=== PATIENT | female | born 1935 | race Caucasian/White ===

== ENCOUNTER 2019-06-09 08:08 | Emergency (ER) | payer OTHER, SELFPAY ==
--- NOTE | ~2019-06-09 | XR_ITS ---
EXAMINATION: XR tibia fibula LT 2V DATE: 06/09/2019 09:26 INDICATION: Left lower leg pain. Fall. TECHNIQUE: 2 views of left tibia and fibula were obtained. COMPARISON: Left tibia and fibula radiographs 01/23/2014 FINDINGS: Bone alignment is normal. No fracture. There is moderate tricompartmental osteoarthritis of the knee. There is a small knee joint effusion. IMPRESSION: 1. Moderate left knee osteoarthritis. 2. Small left knee joint effusion. Reviewed, dictated and finalized at location A. ER TRAPPER
--- NOTE | ~2019-06-09 | XR_ITS ---
EXAMINATION: XR shoulder RT min 2V EXAM DATE: 06/09/2019 09:26 INDICATION: Initial encounter following injury, with pain of the right shoulder. TECHNIQUE: The following right shoulder projections obtained: frontal projection with internal rotati on, frontal projection with external rotation, Grashey, and scapular Y view (4+ views). There is no prior study for comparison. FINDINGS: There is acute fracture through the distal aspect of the right clavicle near the acromiocla vicular joint, best seen on the Y projection. This appears to have displacement on the Y projection. The right humeral head, glenohumeral joints are unremarkable. IMPRESSION: Acute right clavicle fracture distally. Reviewed, dictated and finalized at location A. UTER SERVICE TECHNICIAN
--- NOTE | ~2019-06-09 | XR_ITS ---
EXAMINATION: XR hip RT min 3V w AP pelvis EXAM DATE: 06/09/2019 09:26 INDICATION: Initial encounter following injury, with pain of the right hip. TECHNIQUE: Right hip frontal, crosstable lateral and 'frog-leg' projections for interpretation. Front al projection pelvis. Comparison is made to prior examination from 08/15/2017. FINDINGS: There is total right hip arthroplasty, hardware in expected position. There is moderate lef t hip primary osteoarthritis. There are no acute fractures or dislocations identified. There is no s ubcutaneous gas. The soft tissue is unremarkable. IMPRESSION: Intact right hip arthroplasty. Reviewed, dictated and finalized at location A. FACTURING QUALITY MANAGER
--- NOTE | ~2019-06-09 | XR_ITS ---
EXAMINATION: XR tibia fibula RT 2V DATE: 06/09/2019 09:26 INDICATION: Right lower leg pain. TECHNIQUE: 2 views of right tibia and fibula on 3 radiographs were obtained. COMPARISON: Right tibia and fibula radiographs 08/28/2016 FINDINGS: Bone alignment is normal. No fracture. There is moderate osteoarthritis of medial and [place] lofemoral compartments and mild osteoarthritis of lateral compartment. There are enthesophytes at the posterior and plantar aspects of calcaneal tuberosity. No knee joint effusion. IMPRESSION: 1. Moderate right knee osteoarthritis. Reviewed, dictated and finalized at location A. DYNAMICS DEVELOPER
--- NOTE | ~2019-06-09 | CT_ITS ---
EXAMINATION: CT brain wo con, CT cervical spine wo con EXAM DATE: 06/09/2019 09:03 INDICATION: Fall, head injury. TECHNIQUE: Spiral CT of the head was performed without contrast. Axial, coronal and sagittal images were reviewed. Spiral CT of the cervical spine was performed without contrast. Axial images were rev iewed. Coronal and sagittal reformatted images were also reviewed. The dose-length product (DLP) fo r this examination was 908.00 (accession [id number]), 146.26 (accession [id number]) mGy-cm. The exposure was tailored according to patient size, and iterative reconstruction (ASIR) was used as additional dose reduction technique. There is no prior study for comparison. FINDINGS: HEAD CT: There is no acute intraparenchymal hemorrhage. No evidence of intraparenchymal brain mass l esion. No evidence of acute infarction. There is moderate periventricular and subcortical hypodensit y, nonspecific but probably related to small vessel ischemic disease. There is moderate prominence of the sulci and ventricles related to cerebral atrophy. There is intracranial carotid arterioscler osis. There is no mass effect or midline shift. There is no obstructive hydrocephalus suspected. T here are no extra-axial collections. There are no acute calvarial fractures. The orbits are unremar kable. Soft tissue is unremarkable. The visualized sinuses and mastoid air cells are well aerated. CERVICAL CT: There is right thyroid nodule measuring about 3 cm. There is no evidence of acute cervic al fracture. The odontoid process is intact. Pre-dens space is normal. Prevertebral soft tissue is normal. There are no soft tissue abnormalities identified. There is no disc space widening or trau matic vertebral body subluxation suspected. Overall moderate cervical spondylosis. A detailed level by level evaluation of spondylosis can be added as addendum if requested. IMPRESSION: 1. No acute intracranial or cervical findings. 2. Right thyroid nodule; consider follow-up ultrasound. 3. Age-related findings. Reviewed, dictated and finalized at location A. UT SORTER IMPRESSION: 1. No acute intracranial or cervical findings. 2. Right thyroid nodule; consider follow-up ultrasound. 3. Age-related findings.
[2019-06-09 08:07] VITALS: BP 132/61; PULSE 68; RESP 19; TEMP 37.1; O2SAT 99
--- NOTE | 2019-06-09 08:32 | ED.FALL ---
HPI - Fall General Chief Complaint: Fall Stated Complaint: FALL/ R SHOULDER PAIN Time Seen by Provider: 06/09/19 08:29 Source: patient and family (spouse) Mode of arrival: EMS Limitations: no limitations History of Present Illness HPI Narrative: Pt is an 83 y/o female who presents to the ED, via EMS, secondary to falling out of bed this morning. Per spouse, pt sat up in bed this morning at 0630 and she felt nauseas so he went to get her a bag. While he was going to the bathroom he heard a thump and she was on the floor. Per spouse, pt was not able to get up off the floor and he could not pick her up because she was complaining of rt shoulder pain every time he tried to pick her up. Spouse states that he laid cushions on the floor to make her comfortable and gave her Tylenol 500mg, her morning medications, an ice pack, and a heating pad. Pt stated that her pain was better but he could not get her up, so he called EMS. Pt reports BLE pain, but denies neck pain. complaint: fall Onset (ago): hour(s) (2) Fall from: out of bed Fall witnessed: yes, by family Place fall occurred: home Prolonged down time: hour(s) (2) Symptoms prior to fall: other (nausea) Location of injury - extremities: Right: shoulder Associated symptoms (after fall): denies Related Data Home Medications Medication Instructions Recorded Confirmed atorvastatin 20 mg tablet 20 mg PO DAILY 03/30/19 clopidogrel 75 mg tablet 75 mg PO DAILY 03/30/19 memantine 10 mg tablet 10 mg PO BID 03/30/19 Allergies Allergy/AdvReac Type Severity Reaction Status Date / Time Penicillins Allergy Unknown Unknown Verified 06/09/19 08:27 Review of Systems Review of Systems: All systems reviewed & are unremarkable except as noted in HPI and below Gastrointestinal: Gastrointestinal: Reports nausea Musculoskeletal: Musculoskeletal: Reports arthralgias (rt shoulder pain), Denies neck pain and Reports other (BLE pain) [facility] Past Medical History Medical History (Updated 06/09/19 @ 10:41 by Domitila Olivo MD) Anemia of chronic disease Dementia, unspecified, without behavioral disturbance HLD (hyperlipidemia) Surgical History Surgical History Status post breast lumpectomy Status post right hip replacement Social History Social History Smoking status: Never smoker Second hand tobacco smoke exposure: No Alcohol intake: never Substance use: never Substance use type: does not use Gender identity (if verbalized by the patient): Female Exam Const: General: cooperative, no acute distress and alert Nutritional Appearance: well nourished Orientation/consciousness: patient oriented x3 Limitations: no limitations HENMT: Mouth: Yes lip normal and Yes moist mucous membranes Neck: Neck: nontender Resp: Effort & Inspection: normal respiratory effort Auscultation: clear to auscultation bilaterally Cardio: Rate: regular rate Rhythm: regular rhythm GI: GI Palp: Yes Soft to palpation and No Tenderness to palpation present (GI) Auscultation: normal bowel sounds Back/Spine/Pelvis: Pelvis: Other pelvic findings ( rt proximal femur and hip tenderness) Skin: General skin exam: normal color Neuro: General: patient oriented x3 Cognition (Neuro): normal cognition Speech: normal speech Extrem: General: normal to inspection, full ROM and no clubbing, cyanosis or edema Right upper extremity: shoulder/upper arm tenderness of the A-C joint, of the proximal humerus and other (diffuse shoulder tenderness) Right lower extremity: lower leg Details: tenderness Location: of the midshaft tibia and of the midshaft fibula Left lower extremity: lower leg Details: tenderness Location: of the midshaft tibia and of the midshaft fibula Psych: Mental Status: mental status grossly normal Affect: normal affect Attitude: cooperative Course Course Emergency Course: Patient with fi
[2019-06-09 10:11] VITALS: BP 123/67; PULSE 72; RESP 14; O2SAT 100
[2019-06-09 12:00] VITALS: BP 114/64; PULSE 81; RESP 13; O2SAT 98
== END 2019-06-09 12:25 | disposition home or self-care (01) ==
PROVIDERS: Emergency Provider Emergency Medicine; PCP Family Medicine
DX: S42.031A Displaced fracture of lateral end of right clavicle, initial encounter for closed fracture (principal); M25.551 Pain in right hip; M79.605 Pain in left leg; M79.604 Pain in right leg; E78.5 Hyperlipidemia, unspecified; F03.90 Unspecified dementia, unspecified severity, without behavioral disturbance, psychotic disturbance, mood disturbance, and anxiety; Z96.641 Presence of right artificial hip joint; D63.8 Anemia in other chronic diseases classified elsewhere; E04.1 Nontoxic single thyroid nodule; M17.0 Bilateral primary osteoarthritis of knee; W06.XXXA Fall from bed, initial encounter
CPT/HCPCS: 70450; 72125; 73030; 73502; 73590; 99284

== ENCOUNTER 2019-07-08 09:49 | Outpatient (CLI) | payer OTHER, SELFPAY ==
--- NOTE | ~2019-07-08 | XR_ITS ---
EXAMINATION: XR foot LT min 3V EXAM DATE: 07/08/2019 10:07 INDICATION: No known recent injury provided at this time. Pain of the first, second metatarsal regio n. TECHNIQUE: Left foot dorsoplantar, lateral and oblique projections obtained and reviewed. There are n o prior studies for comparison. FINDINGS: Findings suspicious for juxta-articular erosion of the left first metatarsal head along its lateral aspect, best appreciated on the oblique projection, suspicious for gout. Please clinically c orrelate. There is bunion formation. There is mild to moderate Polyarticular primary osteoarthritis. IMPRESSION: 1. 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 2. Mild to moderate polyarticular left osteoarthritis. Reviewed, dictated and finalized at location A. LEDGE MANAGEMENT ADVISOR
== END 2019-07-08 09:50 | disposition home or self-care (01) ==
PROVIDERS: PCP Family Medicine; Visit Provider Physician Assistant
DX: M19.072 Primary osteoarthritis, left ankle and foot (principal)
CPT/HCPCS: 73630

== ENCOUNTER 2019-10-20 13:20 | Outpatient (CLI) | payer OTHER, SELFPAY ==
--- NOTE | ~2019-10-20 | DEXA_ITS ---
Bone Density Report Name: Elise Salmeron Age: 83 Sex: Female Ethnicity: White Date of : 1935 Indication: postmenopausal osteoporosis; height loss; prior fracture; Referring Provider: Carson Hernandez Study: Bone densitometry was performed. Exam Date: October 20, 2019 Accession number: [id number] Bone Density: Region BMD T-score Z-score Classification AP Spine (L2, L3) 0.699 -3.3 -0.4 Osteoporosis Femoral Neck (Left) 0.422 -3.8 -1.4 Osteoporosis Total Hip (Left) 0.516 -3.5 -1.2 Osteoporosis World Health Organization criteria for BMD impression classify patients as: Normal (T-score at or above -1.0), Osteopenia (T-score between -1.0 and -2.5), or Osteoporosis (T-score at or below -2.5). 10-year Fracture Risk: FRAX not reported because: Some T-score for Spine Total or Hip Total or Femoral Neck at or below -2.5 Prior hip or vertebral fracture Previous Exams: Region Exam Age BMD T-score BMD Change BMD Change Date g/cm2 vs Baseline vs Previous AP Spine(L2, L3) 10/20/2019 83 0.699 -3.3 0.030(4.4%)* 0.030(4.4%)* 02/06/2017 81 0.669 -3.5 Total Hip(Left) 10/20/2019 83 0.516 -3.5 -0.038(-6.9%)* -0.038(-6.9%)* 02/06/2017 81 0.554 -3.2 *Denotes significance at 95% confidence level, LSC for AP Spine = 0.022 g/cm2, LSC for Total Hip = 0.027 g/cm2 Clinical Information Provided by Patient: Have had a previous hip or vertebral fracture Has had a low trauma fracture Has used the following medications: Boniva (i.e. ibandronate), Calcium Patient maximum height was 66 Menopause Age: 50 No regular weight bearing exercise Does not regularly consume dairy products Onset of menses at age 14 Number of children 2 Impression: The patient has established osteoporosis, based on the Left Femoral Neck T-score and the existence of a prior fracture. The patient has risk factors, including: previous fracture. The BMD for the Total Hip(Left) decreased, changing by -6.9% since the last DXA exam. Discussion: HIGH RISK OF FRACTURE. BONE DENSITY IS UNDESIRABLY LOW AT ONE OR MORE SKELETAL SITES, CONSISTENT WITH POSTMENOPAUSAL OSTEOPOROSIS. This patient's lowest T-score, in a patient who has previously fractured, meets the World Health Organization's (WHO) criteria for severe osteoporosis. In untreated patients, the risk of osteoporotic fracture increases approximately two-fold for each 1.0 SD decrease in T-score. Low bone density is not the only risk factor for fracture; also consider factors such as patient's age, frailty or poor health, risk of fal
== END 2019-10-20 13:21 | disposition home or self-care (01) ==
PROVIDERS: PCP Family Medicine; Visit Provider Family Medicine
DX: Z78.0 Asymptomatic menopausal state (principal); M81.0 Age-related osteoporosis without current pathological fracture
CPT/HCPCS: 77080

== ENCOUNTER 2019-12-07 16:09 | Observation (INO) | payer OTHER, SELFPAY ==
[2019-12-07] VITALS (7 sets, daily range): BP systolic 126–149; BP diastolic 60–120; PULSE 71–81; RESP 15–20; TEMP 36.1–37.2; O2SAT 97–100; BMI 24.2; BMI 22.6
--- NOTE | ~2019-12-07 | XR_ITS ---
EXAMINATION: XR knee LT 2V DATE: 12/08/2019 10:36 INDICATION: Left knee pain post fall TECHNIQUE: Anteroposterior and crosstable lateral views of the left knee were obtained COMPARISON: None. FINDINGS: Alignment is normal. No fracture. Tricompartmental osteoarthritis at the left knee with moderate siz e marginal osteophytes in all 3 compartments. There is at least mild joint space narrowing the medial and patellofemoral compartment although severity of joint space narrowing can be underestimated on n onweightbearing imaging there appears be some remodeling of the medial femoral condyle and tibial allie teau suggesting an appreciated more severe joint space narrowing. Small left knee joint effusion with out layering lipohemarthrosis. Mild subcutaneous edema along the medial side of the knee. IMPRESSION: 1. Small left knee joint effusion without evident fracture or layering lipohemarthrosis. 2. Tricompartmental osteoarthritis at the left knee likely severe in the medial compartment however a ssessment is limited on nonweightbearing imaging. Reviewed, dictated and finalized at location A. IMPRESSION: 1. Small left knee joint effusion without evident fracture or layering lipohema rthrosis. 2. Tricompartmental osteoarthritis at the left knee likely severe in the medial compartment however assessment is limited on nonweightbearing imaging.
--- NOTE | ~2019-12-07 | CT_ITS ---
EXAMINATION: CT lumbar spine wo con EXAM DATE: 12/07/2019 17:46 INDICATION: Dementia. Fall. Back pain. TECHNIQUE: Spiral CT of the lumbar spine was performed without contrast. Axial, coronal and sagittal images were reviewed. The dose-length product (DLP) for this examination was 1050.38 mGy-cm. The exposure was tailored according to patient size (auto mA exposure control), and iterative reconstruct ion (ASIR) was used as additional dose reduction technique. Correlation is made to lumbar MR from 12/03. FINDINGS: There is acute mild compression fracture at the superior endplate of L2. There is moderate compression fracture at the superior endplate of L1, which appears chronic but with progression in lo ss of height compared to 2017. No unstable type fractures. There is moderate disc disease L4-5 and L5 -S1 with advanced facet arthropathy causing moderate to severe right neural foraminal stenosis and mo derate left neural foraminal stenosis at these 2 levels. The sacrum is intact. Small bone island in L 3. IMPRESSION: 1. L2 mild acute compression fracture. 2. L1 moderate chronic compression fracture. 3. Lower lumbar predominant spondylosis. Reviewed, dictated and finalized at location A.
--- NOTE | ~2019-12-07 | XR_ITS ---
EXAMINATION: XR chest 1V portable EXAM DATE: 12/07/2019 17:56 INDICATION: Fell today. TECHNIQUE: Portable AP frontal chest x-ray was obtained. Comparison is made to prior examination from 02/12/2019. FINDINGS: Distal right clavicular fracture which appears chronic. Bones are osteopenic. Please note that osteopenia limits sensitivity for detecting fractures by radiographs. No confluent consolidation , pneumothorax or pleural effusion suspected. Calcified mediastinal granulomas. The cardiomediastinal silhouette is prominent but magnified on this AP technique. IMPRESSION: 1. No acute cardiopulmonary findings. Reviewed, dictated and finalized at location A.
--- NOTE | ~2019-12-07 | CT_ITS ---
EXAMINATION: CT pelvis wo con EXAM DATE: 12/07/2019 17:46 INDICATION: Fall, pelvic, hip pain. Dementia. TECHNIQUE: Spiral CT pelvis wo con was performed without contrast. Axial, coronal and sagittal imag es were reviewed. The dose-length product (DLP) for this examination was 376.49 mGy-cm. The exposur e was tailored according to patient size (auto mA exposure control), and iterative reconstruction ( IR) was used as additional dose reduction technique. There is no prior study for comparison. FINDINGS: There is total right hip replacement. There are no acute fractures identified. Sacrum, sac roiliac joints, sacral arcuate lines are intact. Uterus is retroverted, bladder unremarkable. There i s mild sigmoid colonic diverticulosis. There is no adjacent inflammatory change to suggest diverticu litis. IMPRESSION: No acute pelvic findings. Reviewed, dictated and finalized at location A. IMPRESSION: No acute pelvic findings.
--- NOTE | ~2019-12-07 | XR_ITS ---
EXAMINATION: XR elbow LT min 3V EXAM DATE: 12/07/2019 17:56 INDICATION: Initial encounter following injury, with pain of the left elbow. TECHNIQUE: Left elbow frontal, lateral with flexion, and oblique projections obtained and reviewed. There is no prior study for comparison. FINDINGS: Left elbow anterior humeral line intact. There are no acute fractures or dislocations jennifer ntified. There is no subcutaneous gas. The soft tissue is unremarkable. There are no radiopaque f oreign bodies. . There is mild primary osteoarthritis. IMPRESSION: No acute osseous findings. Reviewed, dictated and finalized at location A. IMPRESSION: No acute osseous findings.
--- NOTE | ~2019-12-07 | CT_ITS ---
EXAMINATION: CT brain wo con EXAM DATE: 12/07/2019 17:45 INDICATION: Fell this morning, head injury. Dementia. TECHNIQUE: Spiral CT of the head was performed without contrast. Axial, coronal and sagittal images were reviewed. The dose-length product (DLP) for this examination was 605.33 mGy-cm. The exposure w as tailored according to patient size, and iterative reconstruction (ASIR) was used as additional dos e reduction technique. Comparison is made to prior examination from 06/09/2019. FINDINGS: There is no acute intraparenchymal hemorrhage. No evidence of intraparenchymal brain mass lesion. No evidence of acute infarction. Please note that initial head CT has limited sensitivity f or small or acute infarctions. 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 There is moderate periventric ular and subcortical hypodensity, nonspecific but probably related to small vessel ischemic disease. There is moderate prominence of the sulci and ventricles related to cerebral atrophy. There is in tracranial carotid arteriosclerosis. There are no extra-axial collections. There is no mass effect or midline shift. The orbits are unremarkable. Soft tissue is unremarkable. The visualized sinuses and mastoid air cells are well aerated. IMPRESSION: 1. No acute intracranial findings. 2. Chronic age related findings. 3. 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 Reviewed, dictated and finalized at location A.
--- NOTE | 2019-12-07 16:25 | ECG_ITS ---
Measurements Intervals [place] Rate: 75 P: 76 [place]: 220 QRS: 41 QRSD: 80 T: 28 QT: 400 QTc: 448 Interpretive Statements SINUS RHYTHM WITH FIRST DEGREE AV BLOCK BASELINE ARTIFACT- I, II, III, AVR, AVL, AVF, V1-V6 ABNORMAL ECG Electronically Signed On 12-07-2019 17:56:03 CDT by Tin Bruce D.O.
[2019-12-07] MEDS: SODIUM CHLORIDE 0.9% IV 500 ML 999 ML IV CONT (16:57)
[2019-12-07 17:08] LABS: Basophils Percent Auto 0.4 % (0.2-1.2); Eosinophils Percent Auto 0.4 % (0-4.4); Hematocrit 40.2 % (37.0-47.0); Hemoglobin 13.4 g/dL (12.0-15.0); Immature Granulocyte Absolute 0.04 K/mm3 (0.00-0.031); Immature Granulocyte Percent A 0.5 % (0-0.5); Lymphocytes Absolute Auto 0.86 K/mm3 (0.9-3.2); Lymphocytes Percent Auto 10.5 % (18.3-44.2); Mean Corpuscular HGB Conc 33.3 g/dl (32-36); Mean Corpuscular Hemoglobin 31.8 pg (26-34); Mean Corpuscular Volume 95.3 fl (80-100); Mean Platelet Volume 10.4 fl (7.4-10.4); Monocytes Absolute Auto 0.7 K/mm3 (0.1-0.6); Monocytes Percent Auto 7.9 % (2.6-8.5); Neutrophils Absolute Auto 6.6 K/mm3 (1.3-6.7); Neutrophils Percent Auto 80.3 % (45.5-73.1); Platelet Count Result 226 k/mm3 (150-375); Red Blood Count 4.22 M/mm3 (4.2-5.4); Red Cell Distribution Width 12.3 % (11.5-14.5); White Blood Count 8.2 K/mm3 (4.5-10.0)
[2019-12-07 17:14] LABS: Add Urine Microscopic? YES; Appearance Urine Clear (Clear); Bacteria Urine Trace /hpf; Bilirubin Urine Negative (Negative); Blood Urine 1+ (Negative); Color Urine Straw (Yellow); Glucose Urine UA Negative (Negative); Ketones Urine Negative (Negative); Leukocyte Esterase Ur Negative LEU/UL (Negative); Mucus Urine Rare /lpf; Nitrate Urine Negative (Negative); Protein Urine Negative (Negative); Specific Grav Ur 1.013 (1.001-1.035); Urobilinogen Urine Negative mg/dL (<2.0); WBC Urine 0-3 /hpf
[2019-12-07 17:18] LABS: INR 1.2; Prothrombin Time 14.4 Seconds (11.1-14.7)
[2019-12-07 17:19] LABS: Partial Thromboplastin Time 24.5 SECONDS (22.3-36.8)
--- NOTE | 2019-12-07 19:11 | PC.NURSE ---
PT REPORT GIIVEN BEDSIDE TO JOSIAS ROSADO WHO HAS ASSUMED PT CARE.
--- NOTE | 2019-12-07 19:15 | ED.GENADULT ---
HPI - General Adult General Chief complaint: Fall <HONG Krues Last Filed: 12/07/19 19:33> Stated complaint: BACK PAIN S/P FALL <HONG Kruse Last Filed: 12/07/19 19:33> Time Seen by Provider: 12/07/19 16:18 <HONG Kruse Last Filed: 12/07/19 19:33> Source: patient, family and EMS <HONG Kruse Last Filed: 12/07/19 19:33> Mode of arrival: EMS <HONG Kruse Last Filed: 12/07/19 19:33> Limitations: altered mental status and dementia <HONG Kruse Filed: 12/07/19 19:33> History of Present Illness HPI narrative: Patient is a 34-year-old female who presents to emergency department for evaluation of fall that occurred this morning patient had an unwitnessed fall fell backwards and has since been unable to ambulate EMS initially went out and did a lift assist however due to the patient's inability to ambulate had to return at which point she was brought into the emergency department patient on arrival is complaining of low back pain has not had anything for her symptoms has a history of frequent falls in the recent past secondary to unsteady gait patient lives at home with her elderly . denies any recent illness. Patient on arrival is a limited historian secondary to dementia. <HONG Kruse Last Filed: 12/07/19 19:33> Related Data Allergies/adverse reactions: Allergies Allergy/AdvReac Type Severity Reaction Status Date / Time Penicillins Allergy Unknown Unknown Verified 12/07/19 16:16 <HONG Kruse Last Filed: 12/07/19 19:33> Review of Systems Review of Systems: ROS unobtainable: Yes unobtainable due to mental status <HONG Kruse Last Filed: 12/07/19 19:33> [facility] Past Medical History Medical History: Medical History Anemia of chronic disease Dementia, unspecified, without behavioral disturbance HLD (hyperlipidemia) <HONG Kruse Last Filed: 12/07/19 19:33> Surgical History Surgical History: Surgical History Status post breast lumpectomy Status post right hip replacement <Miguel Perdue PA-C - Last Filed: 12/07/19 19:33> Family History Family History: Family History Mother Cerebrovascular accident Family history of diabetes mellitus in first degree relative Sibling Family history of diabetes mellitus in first degree relative <HONG Kruse Last Filed: 12/07/19 19:33> Social History Social History: Social History Smoking status: Never smoker Second hand tobacco smoke exposure: No Alcohol intake: never Substance use: never Substance use type: does not use Spiritual care concerns: No <HONG Kruse Last Filed: 12/07/19 19:33> Exam Narrative: Exam Narrative: GENERAL: Well-appearing, well-nourished, and in no acute distress. HEAD: Normocephalic, atraumatic. EYES: PERRLA and EOMI. ENT: Nares clear, no rhinorrhea or epistaxis. Mucous membranes moist. Oropharynx without tonsillar hypertrophy exudate or other lesions. NECK: Supple. No adenopathy or masses. CHEST: Clear to auscultation. No respiratory distress. No wheezes rales or rhonchi HEART: Regular rate and rhythm. No murmur heard. Normal peripheral pulses. ABDOMEN: Soft, nontender, nondistended EXTREMITIES: Normal range of motion. No edema. Extremities palpated nontender no midline cervical thoracic or lumbar tenderness. Pelvis palpated and stable hips nontender SKIN: Warm, dry, no rash. Small Skin tear to the left elbow NEURO: Normal speech. Alert and oriented to self. PSYCH: Normal mood and affect. <HONG Kruse Last Filed: 12/07/19 19:33> Course Course Emergency Cours
--- NOTE | 2019-12-07 21:40 | ADMGEN ---
This patient, Elise Salmeron, was admitted to Medical Room 341-01. Patient/family oriented to hospital policies and general routines including ID bracelet, bed and alarms, visiting hours, pain management, procedures, bathroom and other care routines, personal items, smoking policy, room service/diet, and visiting hours. Valuables list has been completed. Information on how to activate the Rapid Response Team has been discussed. Patient/Family are encouraged to report perceived risks to care and to ask questions if they do not understand what they are told or what they should do.
--- NOTE | 2019-12-07 22:27 | PC.NURSE ---
Patient has dementia and is only oriented to self. I attempted to ask her questions in regards to her medical history for the admission assessment. She was unable to answer and kept saying thank you Gonzalo I'm so glad you are here visiting me Your hair looks dixie like that Attempted to reach out to family but was unable to get an answer this late in the day. If I am able to speak with family and get more information I will update as soon as I know.
[2019-12-07] MEDS: FAMOTIDINE 20 MG/2 ML VIAL IV PUSH (22:49)
[2019-12-07] MEDS: LACTATED RINGERS 1,000 ML 75 ML IV CONT (22:50)
--- NOTE | 2019-12-08 02:31 | PM.IMHP ---
H&P: HPI History of Present Illness Date/Time: 12/08/19 02:31 Chief complaint: Frequent falls, gait instability, Narrative: This is a severely demented 84 year old female who presented to the hospital yesterday with a history of suffering an unwitnessed fall and afterwards experienced ambulatory dysfunction. The patient was complaining of lower back pain in the ER and has a history of frequent falls. She is known to live at home with her elderly . Lumbar CT demonstrated L1 and L2 compression fractures. CT brain was obtained and was unremarkable for acute intracranial processes. On my encounter with the patient she cannot remember any details of what happened to her and she is severely demented. She doesn't even realize she is in the hospital. She has no complaints at this time. Review of Systems Review of Systems: All systems reviewed & are unremarkable except as noted in HPI and below PMFSH Past Medical History Medical History Anemia of chronic disease Dementia, unspecified, without behavioral disturbance HLD (hyperlipidemia) Surgical History Surgical History Status post breast lumpectomy Status post right hip replacement Family History Family History Mother Cerebrovascular accident Family history of diabetes mellitus in first degree relative Sibling Family history of diabetes mellitus in first degree relative Social History Social History Smoking status: Never smoker Second hand tobacco smoke exposure: No Alcohol intake: never Substance use: never Substance use type: does not use Spiritual care concerns: No Meds Home Medications and Allergies Home Medications Medication Instructions Recorded Confirmed Type ibandronate 150 mg tablet 150 mg PO MONTHLY #3 tablet 05/26/19 12/07/19 Rx memantine 10 mg tablet 10 mg PO BID #180 tablet 07/01/19 12/07/19 Rx atorvastatin 20 mg tablet 20 mg PO DAILY #90 tablet 11/21/19 12/07/19 Rx clopidogrel 75 mg tablet 75 mg PO DAILY #90 tablet 11/21/19 12/07/19 Rx cephalexin 500 mg capsule 500 mg PO Q12H #60 cap 11/23/19 12/07/19 Rx Allergies Allergy/AdvReac Type Severity Reaction Status Date / Time Penicillins Allergy Unknown Unknown Verified 12/07/19 16:16 Vital Signs Vital Signs - 24 hr 12/07/19 16:09 12/07/19 16:57 12/07/19 18:25 Temperature 36.2 C L Pulse Rate 75 78 78 Respiratory Rate 20 16 Blood Pressure 140/88 129/81 142/96 H Pulse Oximetry 97 100 12/07/19 18:26 12/07/19 19:00 12/07/19 19:45 Temperature 37.2 C Pulse Rate 73 74 81 Respiratory Rate 16 16 Blood Pressure 132/120 H 126/60 149/103 H Pulse Oximetry 98 12/07/19 21:48 Temperature 36.1 C L Pulse Rate 71 Respiratory Rate 15 Blood Pressure 146/96 H Pulse Oximetry 98 Exam Const: General: cooperative, alert, awake and confusion Nutritional Appearance: well nourished and other (demented+++ ) Orientation/consciousness: oriented to person HENMT: Head: normal to inspection General nose exam: Normal external nose present Face and sinus: normal facial exam Mouth: Yes Normal oral and palatal mucosa present and Yes oropharynx normal Eyes: Pupils: Equal, round and reactive pupils present EOM: EOMs intact bilaterally Neck: Neck: supple and no JVD Thyroid: thyroid normal Lymphatic: lymphadenopathy not noted Resp: Effort & Inspection: normal respiratory effort Auscultation: clear to auscultation bilaterally Cardio: Rate: regular rate Rhythm: regular rhythm Heart sounds: no murmurs GI: Inspection: normal to inspection Auscultation: normal bowel sounds Skin: General skin exam: ecchymosis (brusing on upper extremities++ ) Neuro: General: oriented to person and other (demented+++ ) Cranial nerves: Yes CN's II-XII intact bilaterally a
[2019-12-08 05:46] LABS: Basophils Percent Auto 0.8 % (0.2-1.2); Eosinophils Absolute Auto 0.1 K/mm3 (0-0.3); Eosinophils Percent Auto 1.9 % (0-4.4); Hematocrit 38.4 % (37.0-47.0); Hemoglobin 12.5 g/dL (12.0-15.0); Immature Granulocyte Absolute 0.03 K/mm3 (0.00-0.031); Immature Granulocyte Percent A 0.6 % (0-0.5); Lymphocytes Absolute Auto 0.64 K/mm3 (0.9-3.2); Lymphocytes Percent Auto 12.3 % (18.3-44.2); Mean Corpuscular HGB Conc 32.6 g/dl (32-36); Mean Corpuscular Hemoglobin 31.3 pg (26-34); Mean Corpuscular Volume 96.2 fl (80-100); Mean Platelet Volume 10.2 fl (7.4-10.4); Monocytes Absolute Auto 0.5 K/mm3 (0.1-0.6); Neutrophils Absolute Auto 3.9 K/mm3 (1.3-6.7); Neutrophils Percent Auto 75.4 % (45.5-73.1); Platelet Count Result 185 k/mm3 (150-375); Red Blood Count 3.99 M/mm3 (4.2-5.4); Red Cell Distribution Width 12.3 % (11.5-14.5); White Blood Count 5.2 K/mm3 (4.5-10.0)
[2019-12-08 05:59] LABS: Anion Gap 7.5 mmol/L (7-16); Blood Urea Nitrogen 12 mg/dL (7-17); Calcium 7.9 mg/dL (8.4-10.2); Carbon Dioxide 26 mmol/L (22-30); Chloride 105 mmol/L (98-107); Estimated CRCL calculation 58 ml/min; Estimated Glomerular Filt Rate > 60; Glucose 90 mg/dL (65-105); Potassium 3.5 mmol/L (3.4-5.0); Sodium 135 mmol/L (137-145)
[2019-12-08 06:00] VITALS: BP 111/59; PULSE 73; RESP 16; TEMP 36.6; O2SAT 96
[2019-12-08] MEDS: ATORVASTATIN 20 MG TABLET PO (08:59)
[2019-12-08] MEDS: CLOPIDOGREL BISULFATE 75 MG TABLET PO (08:59)
[2019-12-08] MEDS: FAMOTIDINE 20 MG/2 ML VIAL IV PUSH ×2 (08:59→20:26)
[2019-12-08] MEDS: MEMANTINE 10 MG TABLET PO ×2 (08:59→17:02)
--- NOTE | 2019-12-08 09:26 | PCOTNOTE ---
OT evaluation attempted. Awaiting orthopedic consult due to L1-L2 compression fractures. Will attempt OT evaluation when medically appropriate.
--- NOTE | 2019-12-08 09:29 | PCPTNOTE ---
Attempted to see pt for PT evaluation. Pt has compression fractures at L1 and L2. Will attempt again after ortho consult.
[2019-12-08] MEDS: LACTATED RINGERS 1,000 ML 75 ML IV CONT (13:03)
[2019-12-08 14:00] VITALS: BP 122/66; PULSE 72; RESP 14; TEMP 36.8; O2SAT 96
--- NOTE | 2019-12-08 14:52 | PM.IMPN ---
Progress Note: A&P Assessment and Plan (1) Lumbar compression fracture: Qualifiers: Encounter type: initial encounter Lumbar vertebra fracture level: unspecified lumbar vertebra Qualified Code(s): S32.000A - Wedge compression fracture of unspecified lumbar vertebra, initial encounter for closed fracture Code(s): S32.000A - Wedge compression fracture of unspecified lumbar vertebra, initial encounter for closed fracture Status: Acute Assessment and Plan: Admit to med-surg for observation, pain control overnight. Oakley catheter. 12/08/19 14:52Patient is 84 year female with history of severe dementia bleed with her patient had unwitnessed fall at home unfortunately patient is unable to provide any review of symptoms or history, patient had been complain of low back pain upon arrival to emergency lumbar spine showed L1 and L2 compression fracture, CT scan of the head not show any acute injury today patient still is in pain and unable to provide any review of symptoms will have PT OT evaluate the patient and further recommendation to follow, patient will need placement as her elderly would not be able to take care of her. (2) Ambulatory dysfunction: Code(s): R26.2 - Difficulty in walking, not elsewhere classified Status: Acute Assessment and Plan: PT/OT evaluation when appropriate. The patient will likely need placement. (3) Dementia, unspecified, without behavioral disturbance: Qualifiers: Dementia type: unspecified type Qualified Code(s): F03.90 - Unspecified dementia without behavioral disturbance Code(s): F03.90 - Unspecified dementia without behavioral disturbance Status: Chronic Assessment and Plan: Continue Memantine PO. (4) HLD (hyperlipidemia): Qualifiers: Hyperlipidemia type: unspecified Qualified Code(s): E78.5 - Hyperlipidemia, unspecified Code(s): E78.5 - Hyperlipidemia, unspecified Status: Acute Assessment and Plan: Continue Lipitor PO. Subjective Date/time seen: 12/08/19 14:52Patient is 84 year female with history of severe dementia bleed with her patient had unwitnessed fall at home unfortunately patient is unable to provide any review of symptoms or history, patient had been complain of low back pain upon arrival to emergency lumbar spine showed L1 and L2 compression fracture, CT scan of the head not show any acute injury today patient still is in pain and unable to provide any review of symptoms will have PT OT evaluate the patient and further recommendation to follow, patient will need placement as her elderly would not be able to take care of her. Review of Systems Review of Systems: ROS unobtainable: Yes unobtainable due to medical condition Exam Const: General: no acute distress and uncomfortable HENMT: General nose exam: Normal nares present Mouth: Yes moist mucous membranes Eyes: Sclera: sclerae normal Neck: Neck: supple Resp: Effort & Inspection: normal respiratory effort Auscultation: clear to auscultation bilaterally Cardio: Rate: regular rate Rhythm: regular rhythm GI: Auscultation: normal bowel sounds Skin: General skin exam: normal color Neuro: Other: patient with severe dementia Extrem: Other: bilateral lower extremity symmetrical there is no internal external rotation Psych: Other: patient with severe dementia Objective Data Vital Signs Vital Signs: Vital Signs - 24 hr 12/07/19 16:09 12/07/19 16:57 12/07/19 18:25 Temperature 97.1 F L Pulse Rate 75 78 78 Respiratory Rate 20 16 Blood Pressure 140/88 129/81 142/96 H Pulse Oximetry 97 100 12/07/19 18:26 12/07/19 19:00 12/07/19 19:45 Temperature 99.0 F Pulse Rate 73 74 81 Respiratory Rate 16 16 Blood Pressure 132/120 H 126/60 149/103 H Pulse Oximetry 98 12/07/19 21:48 12/08/19 06:00 Temperature 97 F L 97.9 F Pulse Rate 71 73 Respiratory Rate 15
--- NOTE | 2019-12-08 15:25 | PM.CNOR ---
Assessment and Plan Assessment and plan (1) Lumbar compression fracture: Qualifiers: Encounter type: initial encounter Lumbar vertebra fracture level: unspecified lumbar vertebra Qualified Code(s): S32.000A - Wedge compression fracture of unspecified lumbar vertebra, initial encounter for closed fracture Code(s): S32.000A - Wedge compression fracture of unspecified lumbar vertebra, initial encounter for closed fracture Status: Acute (2) Age-related osteoporosis with current pathological fracture, unspecified ankle and foot, initial encounter for fracture: Code(s): M80.079A - Age-related osteoporosis with current pathological fracture, unspecified ankle and foot, initial encounter for fracture Status: Acute (3) Dementia, unspecified, without behavioral disturbance: Qualifiers: Dementia type: unspecified type Qualified Code(s): F03.90 - Unspecified dementia without behavioral disturbance Code(s): F03.90 - Unspecified dementia without behavioral disturbance Status: Chronic Assessment and Plan: Acute, minimally displaced L2 compression fracture. I reviewed the CT scan and agree with the radiologist interpretation. Also, a chronic L1 compression fracture with moderate deformity. We will treat this conservatively. She did not tolerate bracing for her previous fracture and I bracing is not required here. She should avoid thoracic and lumbar flexion. She may bear weight with a walker. Mobilize as able. Pain should improve gradually over the next days and weeks. She will likely need [facility] depending on how she does. Her is quite helpful and attentive. Her osteoporosis is treated. Dementia is stable. She may follow up in 1 month for x-rays. History of Present Illness HPI Consult date: 12/08/19 Chief complaint: Frequent falls, gait instability, Narrative: Pleasantly demented 84-year-old female complains of lumbar back pain. Occurred after a fall at home. Witnessed by her . Initially she was able to walk after assistance getting up from emergency medical personnel. However later she began having severe low back pain that evening. History of L1 compression fracture treated conservatively. She did not tolerate brace wear at that time. Denies radiating pain. No numbness or tingling. No bowel or bladder complaints. Complains of chronic left knee pain and swelling with known deformity. History of injections for arthritis. No upper extremity complaints. She no previous pain prodrome. Review of Systems Review of Systems: All systems reviewed & are unremarkable except as noted in HPI and below ROS unobtainable: Yes unobtainable due to mental status PMFSH Past Medical History Medical History Anemia of chronic disease Dementia, unspecified, without behavioral disturbance HLD (hyperlipidemia) Surgical History Surgical History Status post breast lumpectomy Status post right hip replacement Family History Family History Mother Cerebrovascular accident Family history of diabetes mellitus in first degree relative Sibling Family history of diabetes mellitus in first degree relative Social History Social History Smoking status: Never smoker Second hand tobacco smoke exposure: No Alcohol intake: never Substance use: never Substance use type: does not use Spiritual care concerns: No Meds Home Medications and Allergies Home Medications Medication Instructions Recorded Confirmed Type ibandronate 150 mg tablet 150 mg PO MONTHLY #3 tablet 05/26/19 12/07/19 Rx memantine 10 mg tablet 10 mg PO BID #180 tablet 07/01/19 12/07/19 Rx atorvastatin 20 mg tablet 20 mg PO DAILY #90 tablet 11/21/19 12/07/19 Rx clopi
[2019-12-08 22:00] VITALS: BP 134/76; PULSE 68; RESP 18; TEMP 36.9; O2SAT 96
[2019-12-09 05:09] VITALS: BP 137/80; PULSE 74; RESP 18; TEMP 37.1; O2SAT 99
[2019-12-09 06:15] LABS: Hematocrit 41.8 % (37.0-47.0); Hemoglobin 13.5 g/dL (12.0-15.0); Mean Corpuscular HGB Conc 32.3 g/dl (32-36); Mean Corpuscular Volume 96.1 fl (80-100); Mean Platelet Volume 10.3 fl (7.4-10.4); Platelet Count Result 219 k/mm3 (150-375); Red Blood Count 4.35 M/mm3 (4.2-5.4); Red Cell Distribution Width 12.4 % (11.5-14.5); White Blood Count 6.2 K/mm3 (4.5-10.0)
[2019-12-09 06:52] LABS: Blood Urea Nitrogen 13 mg/dL (7-17); Calcium 8.3 mg/dL (8.4-10.2); Carbon Dioxide 28 mmol/L (22-30); Chloride 106 mmol/L (98-107); Estimated CRCL calculation 49 ml/min; Estimated Glomerular Filt Rate > 60; Glucose 107 mg/dL (65-105); Sodium 138 mmol/L (137-145)
--- NOTE | 2019-12-09 07:52 | PCPTNOTE ---
RN, Domitila, notified the manager lsw that this patient was consulted by Dr. Oliveros this morning and he has recommended that the patient does not need a TLSO. Dr. Oliveros reported that therapy is able to evaluate the patient today. The manager lsw notified acute therapy staff and the patient will be seen for an initial OT and PT evaluation today, as deemed appropriate. Eryn Martínez, PT, DPT
[2019-12-09] MEDS: CLOPIDOGREL BISULFATE 75 MG TABLET PO (09:19)
[2019-12-09] MEDS: FAMOTIDINE 20 MG/2 ML VIAL IV PUSH ×2 (09:19→20:35)
[2019-12-09] MEDS: MEMANTINE 10 MG TABLET PO ×2 (09:19→17:34)
[2019-12-09] MEDS: ATORVASTATIN 20 MG TABLET PO (09:19)
[2019-12-09 09:37] VITALS: BMI 10.0
[2019-12-09 09:43] VITALS: BMI 10.0
[2019-12-09] MEDS: LIDOCAINE 5% PATCH 2 PATCH TRANSDERM (11:14)
[2019-12-09 14:00] VITALS: BP 140/77; PULSE 85; RESP 16; TEMP 36.7; O2SAT 97
--- NOTE | 2019-12-09 14:08 | PM.IMPN ---
Progress Note: A&P Assessment and Plan (1) Lumbar compression fracture: Qualifiers: Encounter type: initial encounter Lumbar vertebra fracture level: unspecified lumbar vertebra Qualified Code(s): S32.000A - Wedge compression fracture of unspecified lumbar vertebra, initial encounter for closed fracture Code(s): S32.000A - Wedge compression fracture of unspecified lumbar vertebra, initial encounter for closed fracture Status: Acute Assessment and Plan: Admit to med-surg for observation, pain control overnight. Oakley catheter. 12/09/19 14:08 Patient is 84 year female with history of severe dementia bleed with her patient had unwitnessed fall at home unfortunately patient is unable to provide any review of symptoms or history, patient had been complain of low back pain upon arrival to emergency lumbar spine showed L1 and L2 compression fracture, CT scan of the head not show any acute injury today patient still is in pain and unable to provide any review of symptoms will have PT OT evaluate the patient and further recommendation to follow, patient will need placement as her elderly would not be able to take care of her. today there are no new complaint pain is little better will continue PT OT evaluation awaiting placement (2) Ambulatory dysfunction: Code(s): R26.2 - Difficulty in walking, not elsewhere classified Status: Acute Assessment and Plan: PT/OT evaluation when appropriate. The patient will likely need placement. (3) Dementia, unspecified, without behavioral disturbance: Qualifiers: Dementia type: unspecified type Qualified Code(s): F03.90 - Unspecified dementia without behavioral disturbance Code(s): F03.90 - Unspecified dementia without behavioral disturbance Status: Chronic Assessment and Plan: Continue Memantine PO. (4) HLD (hyperlipidemia): Qualifiers: Hyperlipidemia type: unspecified Qualified Code(s): E78.5 - Hyperlipidemia, unspecified Code(s): E78.5 - Hyperlipidemia, unspecified Status: Acute Assessment and Plan: Continue Lipitor PO. Subjective Date/time seen: 12/09/19 14:08 Patient is 84 year female with history of severe dementia bleed with her patient had unwitnessed fall at home unfortunately patient is unable to provide any review of symptoms or history, patient had been complain of low back pain upon arrival to emergency lumbar spine showed L1 and L2 compression fracture, CT scan of the head not show any acute injury today patient still is in pain and unable to provide any review of symptoms will have PT OT evaluate the patient and further recommendation to follow, patient will need placement as her elderly would not be able to take care of her. today there are no new complaint pain is little better will continue PT OT evaluation awaiting placement Review of Systems Review of Systems: ROS unobtainable: Yes unobtainable due to medical condition Exam Const: General: comfortable and no acute distress HENMT: General nose exam: Normal nares present Eyes: General: appearance normal, both eyes and all related structures Sclera: sclerae normal Neck: Neck: supple Resp: Effort & Inspection: normal respiratory effort Auscultation: clear to auscultation bilaterally Cardio: Rate: regular rate Rhythm: regular rhythm GI: Auscultation: normal bowel sounds Skin: General skin exam: normal color Neuro: Other: patient is somewhat confused Extrem: General: normal to inspection Other: bilateral lower extremity symmetrical there is no internal or external rotation Psych: Other: patient is somewhat confused Objective Data Vital Signs Vital Signs: Vital Signs - 24 hr 12/08/19 22:00 12/09/19 05:09 Temperature 98.5 F 98.7 F Pulse Rate 68 74 Respiratory Rate 18 18 Blood Pressure 134/76 137/80 Pulse Oximetry 96 99 Intake/Output Intake/Output: Int
[2019-12-09 22:00] VITALS: BP 140/55; PULSE 91; RESP 16; TEMP 36.7; O2SAT 95
[2019-12-10 05:56] LABS: Hematocrit 44.1 % (37.0-47.0); Hemoglobin 14.4 g/dL (12.0-15.0); Mean Corpuscular HGB Conc 32.7 g/dl (32-36); Mean Corpuscular Hemoglobin 31.6 pg (26-34); Mean Corpuscular Volume 96.9 fl (80-100); Mean Platelet Volume 10.5 fl (7.4-10.4); Platelet Count Result 206 k/mm3 (150-375); Red Blood Count 4.55 M/mm3 (4.2-5.4); Red Cell Distribution Width 12.4 % (11.5-14.5); White Blood Count 6.8 K/mm3 (4.5-10.0)
[2019-12-10 06:00] VITALS: BP 158/79; PULSE 71; RESP 16; TEMP 36.4; O2SAT 98
[2019-12-10 06:03] LABS: Anion Gap 8 mmol/L (8-16); Blood Urea Nitrogen 18 mg/dL (7-17); Calcium 8.4 mg/dL (8.4-10.2); Carbon Dioxide 24 mmol/L (22-30); Chloride 105 mmol/L (98-107); Estimated CRCL calculation 49 ml/min; Estimated Glomerular Filt Rate > 60; Glucose 109 mg/dL (65-105); Potassium 4.1 mmol/L (3.4-5.0); Sodium 137 mmol/L (137-145)
[2019-12-10] MEDS: CLOPIDOGREL BISULFATE 75 MG TABLET PO (08:22)
[2019-12-10] MEDS: MEMANTINE 10 MG TABLET PO (08:22)
[2019-12-10] MEDS: FAMOTIDINE 20 MG/2 ML VIAL IV PUSH ×2 (08:22→20:53)
[2019-12-10] MEDS: ATORVASTATIN 20 MG TABLET PO (08:22)
[2019-12-10] MEDS: LIDOCAINE 5% PATCH 2 PATCH TRANSDERM (08:23)
--- NOTE | 2019-12-10 09:47 | PCOTNOTE ---
Attempted to see patient, patient unable to be roused awake to participate in OT. Will re-attempt if time permits.
--- NOTE | 2019-12-10 12:37 | PM.IMPN ---
Progress Note: A&P Assessment and Plan (1) Lumbar compression fracture: Qualifiers: Encounter type: initial encounter Lumbar vertebra fracture level: unspecified lumbar vertebra Qualified Code(s): S32.000A - Wedge compression fracture of unspecified lumbar vertebra, initial encounter for closed fracture Code(s): S32.000A - Wedge compression fracture of unspecified lumbar vertebra, initial encounter for closed fracture Status: Acute Assessment and Plan: Admit to med-surg for observation, pain control overnight. Oakley catheter. 12/10/19 12:37 Patient is 84 year female with history of severe dementia bleed with her patient had unwitnessed fall at home unfortunately patient is unable to provide any review of symptoms or history, patient had been complain of low back pain upon arrival to emergency lumbar spine showed L1 and L2 compression fracture, CT scan of the head not show any acute injury today patient still is in pain and unable to provide any review of symptoms will have PT OT evaluate the patient and further recommendation to follow, patient will need placement as her elderly would not be able to take care of her. today there are no new complaint pain is little better patient's is present in the room, wound to take the patient with home health, pending insurance approval, will continue PT OT evaluation. (2) Ambulatory dysfunction: Code(s): R26.2 - Difficulty in walking, not elsewhere classified Status: Acute Assessment and Plan: PT/OT evaluation when appropriate. The patient will likely need placement. (3) Dementia, unspecified, without behavioral disturbance: Qualifiers: Dementia type: unspecified type Qualified Code(s): F03.90 - Unspecified dementia without behavioral disturbance Code(s): F03.90 - Unspecified dementia without behavioral disturbance Status: Chronic Assessment and Plan: Continue Memantine PO. (4) HLD (hyperlipidemia): Qualifiers: Hyperlipidemia type: unspecified Qualified Code(s): E78.5 - Hyperlipidemia, unspecified Code(s): E78.5 - Hyperlipidemia, unspecified Status: Acute Assessment and Plan: Continue Lipitor PO. Subjective Date/time seen: 12/10/19 12:37 Patient is 84 year female with history of severe dementia bleed with her patient had unwitnessed fall at home unfortunately patient is unable to provide any review of symptoms or history, patient had been complain of low back pain upon arrival to emergency lumbar spine showed L1 and L2 compression fracture, CT scan of the head not show any acute injury today patient still is in pain and unable to provide any review of symptoms will have PT OT evaluate the patient and further recommendation to follow, patient will need placement as her elderly would not be able to take care of her. today there are no new complaint pain is little better patient's is present in the room, wound to take the patient with home health, pending insurance approval, will continue PT OT evaluation. Review of Systems Review of Systems: ROS unobtainable: Yes unobtainable due to medical condition Exam Narrative: Exam Narrative: patient is a pleasantly confused Const: General: comfortable and no acute distress HENMT: General nose exam: Normal nares present Mouth: Yes moist mucous membranes Eyes: General: appearance normal, both eyes and all related structures Sclera: sclerae normal Neck: Neck: supple Resp: Effort & Inspection: normal respiratory effort Auscultation: clear to auscultation bilaterally Cardio: Rate: regular rate Rhythm: regular rhythm GI: Auscultation: normal bowel sounds Skin: General skin exam: normal color Neuro: Other: patient pleasantly confused Extrem: General: normal to inspection Other: bilateral lower extremity symmetrical there is no internal or external rotation Psych:
[2019-12-10 13:48] LABS: SARS-CoV-2 RNA PCR Negative
[2019-12-10 14:00] VITALS: BP 142/68; PULSE 82; RESP 18; TEMP 26.6; O2SAT 98
[2019-12-10] MEDS: ACETAMINOPHEN 500 MG TABLET PO (14:19)
[2019-12-10 21:35] VITALS: BP 157/81; PULSE 82; RESP 16; TEMP 36.5; O2SAT 98
[2019-12-11 05:53] LABS: Hematocrit 42.5 % (37.0-47.0); Hemoglobin 14.1 g/dL (12.0-15.0); Mean Corpuscular HGB Conc 33.2 g/dl (32-36); Mean Corpuscular Hemoglobin 31.8 pg (26-34); Mean Corpuscular Volume 95.9 fl (80-100); Mean Platelet Volume 10.5 fl (7.4-10.4); Platelet Count Result 205 k/mm3 (150-375); Red Blood Count 4.43 M/mm3 (4.2-5.4); Red Cell Distribution Width 12.4 % (11.5-14.5); White Blood Count 7.5 K/mm3 (4.5-10.0)
[2019-12-11 06:00] VITALS: BP 158/82; PULSE 92; RESP 16; TEMP 36.2; O2SAT 97
[2019-12-11 06:07] LABS: Anion Gap 8 mmol/L (8-16); Blood Urea Nitrogen 21 mg/dL (7-17); Calcium 8.2 mg/dL (8.4-10.2); Carbon Dioxide 25 mmol/L (22-30); Chloride 102 mmol/L (98-107); Estimated CRCL calculation 58 ml/min; Estimated Glomerular Filt Rate > 60; Glucose 113 mg/dL (65-105); Potassium 3.8 mmol/L (3.4-5.0); Sodium 135 mmol/L (137-145)
[2019-12-11] MEDS: CLOPIDOGREL BISULFATE 75 MG TABLET PO (08:04)
[2019-12-11] MEDS: ATORVASTATIN 20 MG TABLET PO (08:04)
[2019-12-11] MEDS: MEMANTINE 10 MG TABLET PO ×2 (08:04→16:38)
[2019-12-11] MEDS: FAMOTIDINE 20 MG/2 ML VIAL IV PUSH ×2 (08:06→21:00)
[2019-12-11] MEDS: LIDOCAINE 5% PATCH 2 PATCH TRANSDERM (08:06)
[2019-12-11] MEDS: ACETAMINOPHEN 500 MG TABLET PO (10:59)
--- NOTE | 2019-12-11 12:37 | PM.IMPN ---
Progress Note: A&P Assessment and Plan (1) Lumbar compression fracture: Qualifiers: Encounter type: initial encounter Lumbar vertebra fracture level: unspecified lumbar vertebra Qualified Code(s): S32.000A - Wedge compression fracture of unspecified lumbar vertebra, initial encounter for closed fracture Code(s): S32.000A - Wedge compression fracture of unspecified lumbar vertebra, initial encounter for closed fracture Status: Acute Assessment and Plan: Admit to med-surg for observation, pain control overnight. Oakley catheter. 12/11/19 12:37 Patient is 84 year female with history of severe dementia bleed with her patient had unwitnessed fall at home unfortunately patient is unable to provide any review of symptoms or history, patient had been complain of low back pain upon arrival to emergency lumbar spine showed L1 and L2 compression fracture, CT scan of the head not show any acute injury today patient still is in pain and unable to provide any review of symptoms will have PT OT evaluate the patient and further recommendation to follow, patient will need placement as her elderly would not be able to take care of her. today there are no new complaint pain is little better patient's is present in the room, would to take the patient with home health, pending insurance approval, will continue PT OT evaluation. (2) Ambulatory dysfunction: Code(s): R26.2 - Difficulty in walking, not elsewhere classified Status: Acute Assessment and Plan: PT/OT evaluation when appropriate. The patient will likely need placement. (3) Dementia, unspecified, without behavioral disturbance: Qualifiers: Dementia type: unspecified type Qualified Code(s): F03.90 - Unspecified dementia without behavioral disturbance Code(s): F03.90 - Unspecified dementia without behavioral disturbance Status: Chronic Assessment and Plan: Continue Memantine PO. (4) HLD (hyperlipidemia): Qualifiers: Hyperlipidemia type: unspecified Qualified Code(s): E78.5 - Hyperlipidemia, unspecified Code(s): E78.5 - Hyperlipidemia, unspecified Status: Acute Assessment and Plan: Continue Lipitor PO. Subjective Date/time seen: 12/11/19 12:37 Patient is 84 year female with history of severe dementia bleed with her patient had unwitnessed fall at home unfortunately patient is unable to provide any review of symptoms or history, patient had been complain of low back pain upon arrival to emergency lumbar spine showed L1 and L2 compression fracture, CT scan of the head not show any acute injury today patient still is in pain and unable to provide any review of symptoms will have PT OT evaluate the patient and further recommendation to follow, patient will need placement as her elderly would not be able to take care of her. today there are no new complaint pain is little better patient's is present in the room, would to take the patient with home health, pending insurance approval, will continue PT OT evaluation. Review of Systems Review of Systems: ROS unobtainable: Yes unobtainable due to medical condition Exam Const: General: no acute distress and uncomfortable HENMT: General nose exam: Normal nares present Mouth: Yes moist mucous membranes Eyes: General: appearance normal, both eyes and all related structures Sclera: sclerae normal Neck: Neck: supple Resp: Effort & Inspection: normal respiratory effort Auscultation: clear to auscultation bilaterally Cardio: Rate: regular rate Rhythm: regular rhythm GI: Auscultation: normal bowel sounds Skin: General skin exam: normal color Neuro: Sensory Exam: normal sensation Extrem: General: normal to inspection Other: bilateral lower extremities symmetrical no internal external rotation Psych: Affect: Anxious affect present Objective Data Vital Signs Vital Signs:
[2019-12-11 14:55] VITALS: BP 146/80; PULSE 86; RESP 16; TEMP 36.7; O2SAT 99
[2019-12-11 20:00] VITALS: PULSE 90; RESP 16; O2SAT 97
[2019-12-11 20:02] VITALS: BP 156/85; PULSE 90; RESP 16; TEMP 36.6; O2SAT 97
[2019-12-12 05:55] LABS: Hematocrit 44.7 % (37.0-47.0); Hemoglobin 14.8 g/dL (12.0-15.0); Mean Corpuscular HGB Conc 33.1 g/dl (32-36); Mean Corpuscular Hemoglobin 31.7 pg (26-34); Mean Corpuscular Volume 95.7 fl (80-100); Mean Platelet Volume 10.4 fl (7.4-10.4); Platelet Count Result 212 k/mm3 (150-375); Red Blood Count 4.67 M/mm3 (4.2-5.4); Red Cell Distribution Width 12.2 % (11.5-14.5); White Blood Count 8.1 K/mm3 (4.5-10.0)
[2019-12-12 06:00] VITALS: BP 149/61; PULSE 83; RESP 14; TEMP 36.3; O2SAT 98
[2019-12-12 06:13] LABS: Anion Gap 9 mmol/L (8-16); Blood Urea Nitrogen 22 mg/dL (7-17); Calcium 8.9 mg/dL (8.4-10.2); Carbon Dioxide 29 mmol/L (22-30); Chloride 98 mmol/L (98-107); Estimated CRCL calculation 58 ml/min; Estimated Glomerular Filt Rate > 60; Glucose 119 mg/dL (65-105); Potassium 3.9 mmol/L (3.4-5.0); Sodium 136 mmol/L (137-145)
[2019-12-12] MEDS: FAMOTIDINE 20 MG/2 ML VIAL IV PUSH (08:46)
[2019-12-12] MEDS: CLOPIDOGREL BISULFATE 75 MG TABLET PO (08:46)
[2019-12-12] MEDS: ATORVASTATIN 20 MG TABLET PO (08:46)
[2019-12-12] MEDS: MEMANTINE 10 MG TABLET PO (08:46)
[2019-12-12] MEDS: LIDOCAINE 5% PATCH 2 PATCH TRANSDERM (08:46)
--- NOTE | 2019-12-12 10:50 | PM.DS ---
DS: Admitting Diagnosis Admitting Diagnosis Admitting Diagnosis: Wedge compression fracture of unspecified lumbar vertebra, initial encounter for closed fracture DS: Discharge Diagnosis Discharge Diagnosis (1) Lumbar compression fracture: Qualifiers: Encounter type: initial encounter Lumbar vertebra fracture level: unspecified lumbar vertebra Qualified Code(s): S32.000A - Wedge compression fracture of unspecified lumbar vertebra, initial encounter for closed fracture Code(s): S32.000A - Wedge compression fracture of unspecified lumbar vertebra, initial encounter for closed fracture Status: Acute Assessment and Plan: Admit to med-surg for observation, pain control overnight. Oakley catheter. 12/11/19 12:37 Patient is 84 year female with history of severe dementia bleed with her patient had unwitnessed fall at home unfortunately patient is unable to provide any review of symptoms or history, patient had been complain of low back pain upon arrival to emergency lumbar spine showed L1 and L2 compression fracture, CT scan of the head not show any acute injury today patient still is in pain and unable to provide any review of symptoms will have PT OT evaluate the patient and further recommendation to follow, patient will need placement as her elderly would not be able to take care of her. today there are no new complaint pain is little better patient's is present in the room, would to take the patient with home health, pending insurance approval, will continue PT OT evaluation. (2) Ambulatory dysfunction: Code(s): R26.2 - Difficulty in walking, not elsewhere classified Status: Acute Assessment and Plan: PT/OT evaluation when appropriate. The patient will likely need placement. (3) Dementia, unspecified, without behavioral disturbance: Qualifiers: Dementia type: unspecified type Qualified Code(s): F03.90 - Unspecified dementia without behavioral disturbance Code(s): F03.90 - Unspecified dementia without behavioral disturbance Status: Chronic Assessment and Plan: Continue Memantine PO. (4) HLD (hyperlipidemia): Qualifiers: Hyperlipidemia type: unspecified Qualified Code(s): E78.5 - Hyperlipidemia, unspecified Code(s): E78.5 - Hyperlipidemia, unspecified Status: Acute Assessment and Plan: Continue Lipitor PO. DS: Summary Hospital Course Reason for hospitalization: Chief complaint: Frequent falls, gait instability, Narrative: This is a severely demented 84 year old female who presented to the hospital yesterday with a history of suffering an unwitnessed fall and afterwards experienced ambulatory dysfunction. The patient was complaining of lower back pain in the ER and has a history of frequent falls. She is known to live at home with her elderly . Lumbar CT demonstrated L1 and L2 compression fractures. CT brain was obtained and was unremarkable for acute intracranial processes. On my encounter with the patient she cannot remember any details of what happened to her and she is severely demented. She doesn't even realize she is in the hospital. She has no complaints at this time. Hospital Course: Patient is 84 year female with history of severe dementia bleed with her patient had unwitnessed fall at home unfortunately patient is unable to provide any review of symptoms or history, patient had been complain of low back pain upon arrival to emergency lumbar spine showed L1 and L2 compression fracture, CT scan of the head not show any acute injury today patient still is in pain and unable to provide any review of symptoms will have PT OT evaluate the patient and further recommendation to follow, patient will need placement as her elderly would not be able to take care of her. today there are no new complaint pain is little better patient's is present in the room, would
== END 2019-12-12 11:35 | disposition home health service (06) ==
LOC: ANHED 19:41 → ANH3MED 12-08 00:43
PROVIDERS: Emergency Medicine Emergency Medical Services; Admitting Provider Family Medicine; Emergency Provider General Practice; PCP Family Medicine; Visit Provider Family Medicine
DX: S32.010A Wedge compression fracture of first lumbar vertebra, initial encounter for closed fracture (principal); S32.020A Wedge compression fracture of second lumbar vertebra, initial encounter for closed fracture; Z11.59 Encounter for screening for other viral diseases; M47.816 Spondylosis without myelopathy or radiculopathy, lumbar region; R29.6 Repeated falls; D63.8 Anemia in other chronic diseases classified elsewhere; E78.5 Hyperlipidemia, unspecified; F03.90 Unspecified dementia, unspecified severity, without behavioral disturbance, psychotic disturbance, mood disturbance, and anxiety; M81.0 Age-related osteoporosis without current pathological fracture; W19.XXXA Unspecified fall, initial encounter; Z96.641 Presence of right artificial hip joint
CPT/HCPCS: 36415; 51701; 70450; 71045; 72131; 72192; 73080; 73560; 80048; 81001; 85025; 85027; 85610; 85730; 87635; 93005; 96361; 96365; 96375; 96376; 97110; 97161; 97165; 97530; 97535; 99285; A9270; C9803; G0378; J0131; J7040; J7120; U0003

== ENCOUNTER 2020-10-18 07:25 | Emergency (ER) | payer OTHER, SELFPAY ==
--- NOTE | ~2020-10-18 | XR_ITS ---
XR hand LT min 3V 10/18/2020 07:52 Indication: Left hand bruising and pain after fall Procedure: 3 views left hand Comparison: No prior studies for comparison. Findings: There is osteopenia. Mild polyarticular osteoarthritis. No acute fracture or traumatic ike lignment. Impression: 1: No acute abnormality of the left hand. Reviewed, dictated and finalized at location A. Impression: 1: No acute abnormality of the left hand.
[2020-10-18 07:33] VITALS: BP 134/59; PULSE 73; RESP 18; TEMP 36.4; O2SAT 98
--- NOTE | 2020-10-18 07:57 | ED.FALL ---
HPI - Fall General Chief Complaint: Fall Stated Complaint: hand laceration Time Seen by Provider: 10/18/20 07:44 Source: family Mode of arrival: ambulatory Limitations: dementia History of Present Illness HPI Narrative: Patient is 84 years old white female brought to the emergency room by her complaining of left hand laceration after a fall this morning. Patient got out of bed, slipped and her left hand somehow got injured by the walker bar. denies other injuries. Patient have history of dementia. Patient denying any pain anywhere else. Patient did not hit her head. Patient on Plavix Related Data Allergies Allergy/AdvReac Type Severity Reaction Status Date / Time Penicillins Allergy Unknown Unknown Verified 10/18/20 07:39 Lidoderm Allergy Unknown Rash Uncoded 10/17/20 13:05 Review of Systems Review of Systems: ROS unobtainable: Yes unobtainable due to mental status PMFSH Past Medical History Medical History (Updated 10/18/20 @ 08:03 by Jyoti Rodriguez MD) Anemia of chronic disease Dementia, unspecified, without behavioral disturbance HLD (hyperlipidemia) Surgical History Surgical History Status post breast lumpectomy Status post right hip replacement Family History Family History Mother Cerebrovascular accident Family history of diabetes mellitus in first degree relative Sibling Family history of diabetes mellitus in first degree relative Social History Social History Social History: Smoking status: Never smoker Second hand tobacco smoke exposure: No Alcohol intake: never Substance use: never Substance use type: does not use Gender identity (if verbalized by the patient): Female Spiritual care concerns: No Exam Narrative: Exam Narrative: General appearance: Well-developed, well-nourished Skin: Left hand showed 3 lacerations at the front part at the dorsal side. With bruises Head: Normocephalic, nontraumatic Eyes: Clear conjunctiva ENT: Oropharynx normal, ears normal, nose normal Neck: Supple, nontender Chest and respiratory: Airway patent, no respiratory distress, no accessory muscle use Heart: Regular rate/rhythm Abdomen: Soft, nontender, no organomegaly, quiet bowel sounds Vascular: Normal peripheral pulses, normal capillary refill. Musculoskeletal: Limited range of motion of left fingers Neurologic: Alert and oriented to her name only Course Course Emergency Course: Stable, improving Vital Signs Vital signs: Vital Signs Temperature 36.4 C L 10/18/20 07:33 Pulse Rate 73 10/18/20 07:33 Respiratory Rate 18 10/18/20 07:33 Blood Pressure 134/59 L 10/18/20 07:33 Pulse Oximetry 98 10/18/20 07:33 Temperature 36.4 C L 10/18/20 07:33 Pulse Rate 73 10/18/20 07:33 Respiratory Rate 18 10/18/20 07:33 Blood Pressure 134/59 L 10/18/20 07:33 Pulse Oximetry 98 10/18/20 07:33 Procedures Laceration Laceration 1: Date: 10/18/20 Time: 09:04 Site: hand (Left hand between third and fourth finger dorsally, at the web) Side (If applicable): left Size (cm): 3 Description: linear and clean Depth: simple, single layer Local Anesthetic: lidocaine 1% and with epi Amount of anesthesia used (mL): 4 Pre-repair: wound explored and deep structures intact ====== Skin Level ====== Skin layer closed with: other (Ethilon) Size (cm): 6-0 Technique: simple, interrupted ====== Subcutaneous Layer ====== ====== Muscle Layer
== END 2020-10-18 09:17 | disposition home or self-care (01) ==
PROVIDERS: Emergency Provider Emergency Medicine; PCP Family Medicine
DX: S61.412A Laceration without foreign body of left hand, initial encounter (principal); R26.9 Unspecified abnormalities of gait and mobility; F03.90 Unspecified dementia, unspecified severity, without behavioral disturbance, psychotic disturbance, mood disturbance, and anxiety; E78.5 Hyperlipidemia, unspecified; D63.8 Anemia in other chronic diseases classified elsewhere; Z96.641 Presence of right artificial hip joint; W01.198A Fall on same level from slipping, tripping and stumbling with subsequent striking against other object, initial encounter
CPT/HCPCS: 12002; 73130; 99283